=== PATIENT | male | born 1955 | race Caucasian/White ===

== ENCOUNTER → 2017-03-12 | Outpatient (CLI) | payer OTHER ==
[~2017-03-12] MED LIST: CRESTOR40 MG PO
[2017-03-12 15:27] LABS: HEMATOCRIT 41.5 % (38.0-50.0); HEMOGLOBIN 13.7 gm/dL (13.0-16.0); MEAN CELL VOLUME 97.7 FL (83-96); MEAN CORPUSCULAR HEMOGLOBIN 32.2 PG (28-34); MEAN PLATELET VOLUME 9.6 FL (6.5-11.5); RED BLOOD COUNT 4.25 X10e (3.90-5.60); RED CELL DISTRIBUTION WIDTH 14.9 % (11.0-15.5); WHITE BLOOD COUNT 6.6 X10e3 (4.0-10.5)
[2017-03-12 15:43] LABS: IRON SERUM 72 ug/dL (45-182); TOTAL IRON BINDING CAPACITY 276 ug/dL (252-460); TRANSFERRIN 197 mg/dL (180-329); TRANSFERRIN SATURATION 26 % (20-50)
[2017-03-12 16:05] LABS: FOLATE (FOLIC ACID) 22.5 ng/mL (>5.8)
== END | disposition home or self-care (01) ==
LOC: CLAB 14:37
PROVIDERS: Specialist
DX: D64.9 Anemia, unspecified (principal)
CPT/HCPCS: 36415; 82607; 82728; 82746; 82747; 83540; 83550; 85027